=== PATIENT | female | born 1965 | race Caucasian/White ===

== ENCOUNTER → 2020-10-05 15:59 | Outpatient (CLI) | payer OTHER, SELFPAY ==
[2020-10-05 18:56] LABS: CRP 5.19 mg/L (0.0-3.0)
[2020-10-07 16:09] LABS: Endomysial Antibody IgA Negative (Negative)
[2020-10-07 18:39] LABS: Immunoglobulin A 192 mg/dL (87-352); t-Transglutaminase IgA <2 U/mL (0-3)
== END ==
PROVIDERS: PCP Internal Medicine; Referring Provider Internal Medicine Gastroenterology; Visit Provider Internal Medicine Gastroenterology
DX: R19.7 Diarrhea, unspecified (principal)
CPT/HCPCS: 36415; 82784; 83516; 86140; 86255